=== PATIENT | female | born 1985 | race Caucasian/White ===

== ENCOUNTER 2025-01-05 13:50 | Outpatient (REF) | payer OTHER, SELFPAY ==
[2025-01-05 18:36] LABS: Hematocrit 40.2 % (37.0-47.0); Hemoglobin 13.4 g/dl (12.0-16.0); Mean Corpuscular HGB Conc 33.3 g/dl (31.0-35.0); Mean Corpuscular Hemoglobin 30.5 pg (27.0-33.0); Mean Corpuscular Volume 91.6 fL (80.0-98.0); NRBC Abs Auto 0.000 X10*3/uL (0.0-0.012); NRBC Pct Auto 0.0 /100WBC (0.0-0.2); Platelet Count 214 X10*3/uL (160-400); Red Blood Count 4.39 X10*6/uL (4.20-5.50); White Blood Count 5.0 X10*3/uL (4.8-10.8)
[2025-01-05 18:57] LABS: Alanine Aminotransferase 20 U/L (0-31); Albumin Level 4.7 g/dL (3.5-5.0); Alkaline Phosphatase 58 U/L (39-117); Anion Gap 12 (12-20); Aspartate Amino Transferase 30 U/L (5-31); Blood Urea Nitrogen 11 mg/dL (9-16); Calcium 9.9 mg/dL (8.4-10.2); Carbon Dioxide 26 mmol/L (22-29); Chloride 109 mmol/L (96-108); Cholesterol 162 mg/dL (<200); Estimated Glomerular Filt Rate > 60; HDL Cholesterol 60 mg/dL (>40); Potassium 3.6 mmol/L (3.3-5.1); Sodium 143 mmol/L (135-145); Total Protein 7.5 g/dL (6.5-8.0); Triglycerides 75 mg/dL (<150)
[2025-01-09 06:19] LABS: Vitamin D 25-OH, D2 <4 ng/mL; Vitamin D 25-OH, D3 34 ng/mL; Vitamin D 25-OH, Total 34 ng/mL (30-100)
== END 2025-01-05 13:51 | disposition home or self-care (01) ==
LOC: HO.WFDLDS 13:50
PROVIDERS: PCP Physician Assistant Medical; Visit Provider Physician Assistant Medical
DX: Z00.00 Encounter for general adult medical examination without abnormal findings (principal); Z13.6 Encounter for screening for cardiovascular disorders; F41.9 Anxiety disorder, unspecified; F32.A Depression, unspecified
CPT/HCPCS: 36415; 80053; 80061; 82306; 84443; 85027; 96127

== ENCOUNTER 2025-01-05 13:50 | Outpatient (AMB) | payer OTHER, SELFPAY ==
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
[2025-01-05 14:07] VITALS: BP 102/64; PULSE 63; RESP 14; TEMP 36.6; O2SAT 95; BMI 29.3
--- OUTSIDE RECORDS SUMMARY | 2025-01-05 18:46 | XMS_ITS | Encounter Summary ---
Author Organization [facility] Address [address] [place] [address] Care Team Providers Care Telecommunications Engineer Name Role Phone Mihai Leah Yane MOISTURE TESTER Primary Care Provider [phone] Pcp, No Primary Care Provider Unavailabl e Encounter Details Date Type Department Care Team (Late st Contact Info) Description 07/19/2020 Scanned Document [facility] [address] [facility] [address] [place] [address] Leah Holm APRN [address] [facility] [address] [place] [address] Social History Tobacco Use Types Packs/Day Years Used Date Smoking Tobacco: Former Smokeless Tobacco: Never Alcohol Use Standard Drinks/Week Comments Yes 10 (1 standard drink = 0.6 oz pu re alcohol) Comments No Sex and Gender Information Value Date Recorded Sex Assigned at Not on file Legal Sex Female 1:26 PM EDT Gender Identity Not on file Sexual Orientation Not on file COVID-19 Exposure Response Date Recorded In the last month, have you been in contact with someone who was confirmed or suspected to have Coronavirus / COVID-19? No / Unsure 07/14/2020 2:03 PM EDT documented as of this encounter Plan of Treatment Not on file documented as of this encounter Visit Diagnoses Not on filedocumented in this encounter Care Teams Telecommunications Engineer Relationship Specialty Start Date End Date Leah Holm APRN [address] [place] [address] PCP - General Family Medicine 07/14/20 08/24/23 Pcp, No PCP - General General Medicine 08/25/23 documented as of this encounter
--- OUTSIDE RECORDS SUMMARY | 2025-01-05 18:46 | XMS_ITS | Clinical Summary ---
Author Organization [facility] Address [address] [place] [address] Care Team Providers Care Guest Services Associate Name Role Phone Pcp, No Primary Care Provider Unavailabl e Allergies No known active allergies Medications No known medications Active Problems No known active problems Family History Medical History Relation Name Comments No Known Problems Mother Relation Name Status Comments Mother Alive Social History Tobacco Use Types Packs/Day Years Used Date Smoking Tobacco: Former Smokeless Tobacco: Never Alcohol Use Standard Drinks/Week Comments Yes 10 (1 standard drink = 0.6 oz pu re alcohol) Comments No Sex and Gender Information Value Date Recorded Sex Assigned at Not on file Legal Sex Female 1:26 PM EDT Gender Identity Not on file Sexual Orientation Not on file Last Filed Vital Signs Vital Sign Reading Time Taken Comments Blood Pressure 132/84 07/14/2020 2:24 PM EDT Pulse 82 07/14/2020 2:24 PM EDT Temperature 36.2 C (97.2 F) 07/14/2020 2:24 PM EDT Respiratory Rate 14 07/14/2020 2:24 PM EDT Oxygen Saturation 97% 07/14/2020 2:24 PM EDT Inhaled Oxygen Concentration - - Weight 83.5 kg (184 lb) 07/14/2020 2:24 PM EDT Height - - Body Mass Index - - Plan of Treatment Health Maintenance Due Date Last Done Comments Hepatitis C Virus Screening 1986 HIV Screening 09/05/1999 DTaP/Tdap/Td Vaccines (1 - Tdap) 2005 Hepatitis B Vaccines (1 of 3 - 19+ 3-dose series) 2005 Pap Smear (Ages 21-65) 09/05/2007 Influenza Vaccine 09/12/2024 COVID-19 Vaccine (2023-2 5 season) 2024 HPV Vaccines (No Doses Required) Completed Pneumococcal Vaccine: Pediat lestre (0-5 Years) and At-Risk Patients (6 to 49 Years) Aged Out No longer eligible b ased on patient's age to complete this topic Insurance [facility] Care Teams Guest Services Associate Relationship Specialty Start Date End Date Pcp, No PCP - General General Medicine 08/25/23
--- OUTSIDE RECORDS SUMMARY | 2025-01-05 18:46 | XMS_ITS | Encounter Summary ---
Author Organization [facility] Address [address] [place] [address] Care Team Providers Care Deaf Teacher Name Role Phone Mihai Leah Yane PLANT GUARD Primary Care Provider [phone] Pcp, No Primary Care Provider Unavailabl e Encounter Details Date Type Department Care Team (Late st Contact Info) Description 07/19/2020 Scanned Document [facility] [address] [facility] [address] [place] [address] Leah Holm APRN [address] [facility] [address] [place] [address] Social History Tobacco Use Types Packs/Day Years [...] on filedocumented in this encounter Care Teams Deaf Teacher Relationship Specialty Start Date End Date Leah Holm APRN [address] [place] [address] PCP - General Family Medicine 07/14/20 08/24/23 Pcp, No PCP - General General Medicine 08/25/23 documented as of this encounter
--- OUTSIDE RECORDS SUMMARY | 2025-01-05 18:46 | XMS_ITS | Data Portability ---
Author Organization [facility] Address [address] [place] [address] Care Team Providers Care Presser First Name Role Phone [facility] (DERMATOLOGY) [facility] Care Provider Assessment No assessment recorded. Plan of Treatment Reminders Order Date Submit Date Provider Last Modified By Organization Details Last Modified Time Details Appointments None record ed. Lab None record ed. Referral None record ed. Procedures None record ed. Surgeries None record ed. Imaging None record ed. Medication Orders None record ed. Patient TargetsNo targets recorded. Patient InstructionsNo instructions recorded. Reason for Referral None Reported. Problems Name Problem SNOMED Code Status Onset Date Resolution Date Notes Provider Name and Address Organization Details Recorded Time Bilateral carpal tunnel syndrome 81781390441296 101 Active 2023 Vy Das CNP [address], [place], [address], [facility] 10:52:06 Problem Notes None recorded. Procedures Surgical History Date Name Laterality Status Provider Name and Address Organization Details Recorded Time 4 Carpal Tunnel Celestone 1cc Injection, Bilateral completed Vy Das CNP [address] [place] [address], [phone], [facility] 05/17/2023 10:51:45 Imaging Results None recorded. Procedure Notes None recorded. Medical Equipment None Reported. Allergies No known drug allergies Medications Name Sig Start Date Stop Date Status Note LastModified by Organization Details LastModified Time ParaGard T 380A 380 square mm intrauterine device BRING TO OFFICE FOR INSERTION active Not Available Not Available No t Available aspirin active Not Available Not Avail able Not Available active Not Available Not Avai lable Not Available Vitals Date Recorded Body height Body mass index (BMI) Body weight Provider Name and Address Organization Details Last Updated DateTime 05/17/2023 167.64 cm 37.1 kg/m2 922234.25 g CHRIS MADRID [facility] 05/17/2023 09:56:55 Social History None recorded. Functional Status None recorded. Mental Status None recorded. Family History Nothing Reported. Medical History No medical history recorded. Gynecological HistoryNo gynecological history recorded. Obstetrics History GPAL:G 0 P 0 0 0 0 Past Encounters Encounter ID Performer Location Encounter Start Date Encounter Closed Date Diagnosis/Indication Diagnosis SNOMED-CT Code Diagnosis ICD10 Code Diagnosis IMO Codes Diagnosis Note [id number] Vy Das CNP [facility] [address] [place] [address] 05/17/2023 09:41:30 05/30/2023 14:55:57 Bilateral carpal tunnel syndrome [id number] 8843290 G56.03 Health Concerns Section Related Observation LastModified by Organization Detai ls LastModified Time None Recorded Concern Status LastModified by Organization Details LastModified Time None Recorded Advance Directives Directive None Recorded Payers Insurance Date Sequence Insurance Name Policy Number Policy Crowell Covered Member ID Crowell Member ID Guarantor Name 05/30/2023 1 [facility] PLAN (MEDICAID HMO) ROSETTE Rodriguez [id number] Cherry Rodriguez Notes Date Note Type Note Provider Name and Address Organization Details Recorded Time 05/17/2023 text/html ROS as noted in the HPI Savana is a 37 year old female who developed numbness through median nerve distribution in the bilateral upper extremities. She is 36 weeks and the numbness is getting worse. I have spoken to her MICHELA at her OB office and she is cleared to get a cortisone injection if necessary. 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 She reports the numbness wakes her at night. Vy Das CNP [address], [address], [facility] 05/17/2023 10:52:38 OBGyn Episode No OBEpisode recorded.
--- OUTSIDE RECORDS SUMMARY | 2025-01-05 18:46 | XMS_ITS | Encounter Summary ---
Author Organization [facility] Address [address] [place] [address] Care Team Providers Care Pediatric Genetic Counselor Name Role Phone MihaiLeah Yane SEWER AND DRAIN TECHNICIAN Primary Care Provider [phone] Pcp, No Primary Care Provider Unavailabl e Encounter Details Date Type Department Care Team (Late st Contact Info) Description 07/14/2020 Scanned Document [facility] [address] [facility] [address] [place] [address] Leah Holm APRN [address] [facility] [address] [place] [address] Social History Tobacco Use Types Packs/Day Years [...] on filedocumented in this encounter Care Teams Pediatric Genetic Counselor Relationship Specialty Start Date End Date Leah Holm APRN [address] [place] [address] PCP - General Family Medicine 07/14/20 08/24/23 Pcp, No PCP - General General Medicine 08/25/23 documented as of this encounter
== END 2025-01-05 14:57 | disposition home or self-care (01) ==
LOC: HO.HMCFM 13:51
PROVIDERS: PCP Physician Assistant Medical; Visit Provider Physician Assistant Medical
DX: Z00.00 Encounter for general adult medical examination without abnormal findings (principal); Z13.6 Encounter for screening for cardiovascular disorders; F41.9 Anxiety disorder, unspecified; F32.A Depression, unspecified